=== PATIENT | male | born 1990 | race Two or more races ===

== ENCOUNTER 2018-11-04 23:06 | Emergency (ER) | payer OTHER ==
[~2018-11-04] VITALS: Ht 165.1 cm; Wt 102.1 kg
[2018-11-04 23:19] VITALS: BP 107/69
[2018-11-05] MEDS ORDERED: KETOROLAC TROMETH 60MG/2ML VIAL IM ONE (01:15)
[2018-11-05] MEDS ORDERED: methylPREDNISolone SOD SUCC 125 MG/2 ML VL IM ONE (01:15)
== END 2018-11-05 03:11 | disposition home or self-care (01) ==
LOC: EDBD 23:06 → ER 23:12
DX: S49.92XA Unspecified injury of left shoulder and upper arm, initial encounter (principal); M62.838 Other muscle spasm; V43.52XA Car driver injured in collision with other type car in traffic accident, initial encounter; Y93.89 Activity, other specified; Y99.8 Other external cause status; Y92.410 Unspecified street and highway as the place of occurrence of the external cause
CPT/HCPCS: 73030; 96372; 99283; J1885; J2930